=== PATIENT | female | born 1945 | race Caucasian/White ===

== ENCOUNTER 2018-04-16 06:20 | Day surgery (SDC) | payer MEDICARE ==
[2018-04-16] VITALS (13 sets, daily range): BP systolic 109–146; BP diastolic 62–72; PULSE 50–82; RESP 13–18; Ht 162.6 cm; Wt 69.4 kg
[~2018-04-16] VITALS: Ht 162.6 cm; Wt 69.4 kg
[2018-04-16] MEDS ORDERED: NEOSTIGMINE 3 MG/3 ML SYRINGE ONE (07:00)
[2018-04-16] MEDS ORDERED: GLYCOPYRROLATE 0.4 MG INJ ONE (07:00)
[2018-04-16] MEDS ORDERED: SEVOFLURANE 15 MIN ONE (07:00)
--- NOTE | 2018-04-16 08:06 | PREAC ---
Date/Time of Note Date/Time of Note DATE: 04/16/18 TIME: 08:03 Anesthesia Eval and Record Evaluation Time Pre-Procedure Interview DATE: 04/16/18 TIME: 07:50 Age 72 Sex female NPO: 8 hrs Preoperative diagnosis Cholelithiasis, cholecystitis Planned procedure ERCP Past Medical History Past Medical History: Includes Cardio: HTN, Dyslipidemia, CAD, PTCA/Stent Surgery & Anesthesia Issues No known issue Meds Anticoagulation: No Beta Bridgett within 24 hr: No Reason Beta Bridgett not given: Pt. not on B-Bridgett Meds reviewed: Yes Allergies Coded Allergies: No Known Allergy (Unverified , 04/16/18) Allergies Reviewed: Yes Labs/Studies Labs Reviewed: Reviewed by anesthesiologist Result Diagram: 04/16/18 0715 Laboratory Tests 04/16/18 07:15 test: N/A Studies: ECG (NSR), CXR (n/a) Pre-procedure Exam Last vitals Vital Signs Date Temp Pulse Resp B/P (MAP) Pulse Ox O2 O2 Flow FiO2 Time Delivery Rate 04/16/18 97.4 57 18 130/68 98 Room Air 07:19 (88) Airway: Adequate mouth opening, Adequate thyromental dist Mallampati: Mallampati II Teeth: Normal Lung: Normal Heart: Normal ASA Physical Status ASA physical status: 3 Emergency: None Planned Anesthetic General/MAC: ETT Planned Pain Management Parenteral pain med Pre-operative Attestations Prior to commencing anesthesia and surgery, the patient was re-evaluated, there was verification of: *The patient's identity *The results of appropriate recent lab work and preoperative vital signs *The above evaluation not changing prior to induction *Anesthetic plan, risk benefits, alternative and complications discussed with patient/family; questions answered; patient/family understands, accepts and wishes to proceed. BRANDON RICH MD Apr 16, 2018 08:06
[2018-04-16] MEDS ORDERED: IOHEXOL 300MG/ML 30 ML BTL ONE (08:16)
[2018-04-16] MEDS ORDERED: INDOMETHACIN 50 MG SUPP PR ONE (08:16)
[2018-04-16] MEDS ORDERED: PROPOFOL 20 ML ONE (08:21)
[2018-04-16] MEDS ORDERED: ROCURONIUM 50 MG INJ ONE (08:21)
[2018-04-16] MEDS ORDERED: FENTAnyl 50 MCG/ML VIAL ONE (08:21)
[2018-04-16] MEDS ORDERED: CEFAZOLIN 1 GM INJ ONE (08:21)
[2018-04-16] MEDS ORDERED: HYDROmorphONE 1 MG/5 ML IV SYRINGE IV PRN ×2 (08:30)
[2018-04-16] MEDS ORDERED: METOCLOPRAMIDE 10 MG INJ IV PRN (08:30)
[2018-04-16] MEDS ORDERED: FENTAnyl 50 MCG/ML VIAL IV PRN ×2 (08:30)
[2018-04-16] MEDS ORDERED: MEPERIDINE 25 MG INJ IV PRN (08:30)
[2018-04-16] MEDS ORDERED: hydrALAzine 20 MG INJ IV PRN (08:30)
[2018-04-16] MEDS ORDERED: LABETALOL HCL 20MG INJ IV PRN (08:30)
[2018-04-16] MEDS ORDERED: ONDANSETRON 4 MG INJ IV PRN (08:30)
[2018-04-16] MEDS ORDERED: DIPHENHYDRAMINE 50 MG INJ IV PRN (08:30)
[2018-04-16] MEDS ORDERED: EPHEDrine SULFATE 50 MG/5 ML SYG IV PRN (08:30)
[2018-04-16] MEDS ORDERED: PHENYLephrine (100 MCG/ML) 5ML SYG ONE (08:37)
[2018-04-16] MEDS ORDERED: DEXAMETHASONE 4 MG/ML 5 ML INJ ONE (08:49)
[2018-04-16] MEDS ORDERED: METOCLOPRAMIDE 10 MG INJ ONE (08:49)
[2018-04-16] MEDS ORDERED: ONDANSETRON 4 MG INJ ONE (08:49)
--- NOTE | 2018-04-16 09:16 | PAC ---
Date/Time of Note Date/Time of Note DATE: 04/16/18 TIME: 09:16 Post-Anesthesia Notes Post-Anesthesia Note Last documented vital signs Vital Signs Date Temp Pulse Resp B/P (MAP) Pulse Ox O2 O2 Flow FiO2 Time Delivery Rate 04/16/18 97.4 57 18 130/68 98 Room Air 09:19 (88) Activity: WNL Respiratory function: WNL Cardiovascular function: WNL Mental status: Baseline Pain reasonably controlled: Yes Hydration appropriate: Yes Nausea/Vomiting absent: Yes BRANDON RICH MD Apr 16, 2018 09:16
--- NOTE | 2018-04-17 02:06 | GILP ---
DATE OF PROCEDURE: PROCEDURE PERFORMED: ERCP. INDICATION: The patient is a 72-year-old female who had a metallic stent placed for biliary stone. Most of the stones were removed. The patient also had a liver abscess secondary to cholangitis. The purpose of this procedure is to remove the metallic stent and also make sure no stones left behind i n the bile duct. The risk of the procedure, related and unrelated complications, anesthetic risk and alternatives were discussed. Informed consent was obtained. Cardiology clearance also was obtained . DESCRIPTION OF PROCEDURE: The patient was brought to the GI lab, intubated and placed in a prone pos ition. ERCP scope was passed with much ease into esophagus and advanced further down into stomach an d duodenum. One of the wires was barely visible outside of the ampulla. With the help of rescue for ceps, the wire was grasped and the stent was pulled out then the whole stent was grasped with rescue forceps and it was removed along with the scope. There was minimal oozing seen after removal of the scope. Scope was then reintroduced. Ampulla reopening was covered with blood blindly cannulated the bile duct. Guidewire was passed. Bile duct was dilated up to 2 cm. Intrahepatic ducts were all di lated. At this point, balloon sweeping was done. Multiple small stones removed and mud removed. Bi le duct was swept multiple times with 15 and 18 mm balloon and it would come out easily. The opening was large and no stones were left behind. Scope was removed with excellent patient tolerance. IMPRESSION: 1. Dilated bile duct and intrahepatic duct. Bile duct was dilated up to 2 cm. 2. Removal of the metallic stent. 3. Removal of multiple small stones. 4. Excellent drainage established. 5. Fluoroscopy time was 3 seconds. PLAN: The patient will be followed as an outpatient 2 weeks down the line. If she developed severe abdominal pain, she should go to the emergency room and we will monitor LFT as an outpatient. Dictated By: LANCE HU/ADDISON Conf#: [id number] DID#: [id number]
== END 2018-04-16 10:58 | disposition home or self-care (01) ==
LOC: SDS 06:20
PROVIDERS: ATTEND Internal Medicine Gastroenterology
DX: K80.50 Calculus of bile duct without cholangitis or cholecystitis without obstruction (principal)
CPT/HCPCS: 43264; 43275; 71045; 74330; 80048; 85025; 85610; 85730; J0690; J1100; J2370; J2405; J2765; J3010; Q9967; J2710